=== PATIENT | female | born 1975 | race Caucasian/White ===

== ENCOUNTER 2021-07-20 19:17 | Emergency (ER) | payer OTHER ==
[2021-07-20 22:10] LABS: HEMOGLOBIN 10.7 gm/dl (12.3-15.3); RED BLOOD COUNT 3.7 M/UL (4.00-5.10); WHITE BLOOD COUNT 10.7 K/UL (4.5-11.0)
[2021-07-20 22:51] LABS: BUN/CREATININE RATIO 23 (0-10)
[2021-07-20] MEDS ORDERED: KEFLEX750 MG PO (23:50)
== END 2021-07-21 00:01 | disposition home or self-care (01) ==
LOC: ER1 19:17
PROVIDERS: Family Medicine
DX: N39.0 Urinary tract infection, site not specified (principal); E11.9 Type 2 diabetes mellitus without complications; I10 Essential (primary) hypertension
CPT/HCPCS: 80053; 81001; 83690; 85025; 99284